=== PATIENT | female | born 1985 | race Caucasian/White ===

== ENCOUNTER → 2018-07-24 | Outpatient (CLI) | payer SELFPAY ==
--- NOTE | 2018-07-25 11:49 | RADIOLOGY IMAGING REPORT ---
FACILITY: [facility] - [place] PATIENT NAME: KEEGAN MCCALLUM : [id number] MR: [id number] V: [id number] EXAM DATE: [id number] ORDERING PHYSICIAN: MICK FLETCHER TECHNOLOGIST: Dorota Smith PROCEDURE:BILATERAL DIAGNOSTIC DIGITAL MAMMOGRAM WITH CAD ASSISTED INTERPRETATION & 3D TOMOSYNTHESIS REASON FOR STUDY: Left breast pain. FAMILY HISTORY OF BREAST CANCER: None. BREAST PROCEDURES/TREATMENTS: None. COMPARISON STUDIES: Today's Left breast Ultrasound. MAMMOGRAM VIEWS OBTAINED: Bilateral 2D & 3D full field CC & MLO. BREAST DENSITY: The breasts are heterogeneously dense which can obscure small masses. MAMMOGRAM FINDINGS: There is no demonstration of malignant appearing mass or calcification in either breast. ULTRASOUND AREA SCANNED: 4-8 o'clock position of the Left breast. ULTRASOUND FINDINGS: Mildly prominent ducts are seen in the anterior depth of the Left breast in the 4-8 o'clock position. DIAGNOSTIC CATEGORY 2--BENIGN FINDING. RECOMMENDATIONS: CLINICAL EVALUATION. IMPRESSION: BIRADS 2: Benign finding. There are mildly prominent ducts in the 4-8 o'clock position of the Left breast which may account for patient's Left breast pain. Clinical follow-up recommended, Dictated by: Priya Blackwell M.D. on 07/24/2018 at 16:59 Transcribed by: FIX on 07/25/2018 at 11:17 Approved by: Priya Blackwell M.D. on 07/25/2018 at 11:48 [facility]
--- NOTE | 2018-07-25 11:50 | RADIOLOGY IMAGING REPORT ---
FACILITY: [facility] PATIENT NAME: KEEGAN MCCALLUM : [id number] MR: [id number] V: [id number] EXAM DATE: [id number] ORDERING PHYSICIAN: MICK FLETCHER TECHNOLOGIST: Pierce Mcgrath RDMS, ASHVIN PROCEDURE:US LEFT BREAST COMPARISON:None. INDICATIONS:left breast pain AREA SCANNED: 4-8 o'clock position of the Left breast. ULTRASOUND FINDINGS: Mildly prominent ducts are seen in the anterior depth of the Left breast in the 4-8 o'clock position. DIAGNOSTIC CATEGORY 2--BENIGN FINDING. RECOMMENDATIONS: CLINICAL EVALUATION. IMPRESSION: BIRADS 2: Benign finding. There are mildly prominent ducts in the 4-8 o'clock position of the Left breast which may account for patient's Left breast pain. Clinical follow-up recommended, Dictated by: Priya Blackwell M.D. on 07/24/2018 at 16:59 Transcribed by: DIVINA on 07/25/2018 at 11:20 Approved by: Priya Blackwell M.D. on 07/25/2018 at 11:48 [facility]
== END ==
LOC: MAMO 01:02
PROVIDERS: ATTEND Nurse Practitioner Family
DX: N64.4 Mastodynia (principal)
CPT/HCPCS: 77062; 77066

== ENCOUNTER → 2018-07-24 | Outpatient (CLI) | payer OTHER | LOC: US 12:23 | PROVIDERS: ATTEND Nurse Practitioner Family | DX: Z02.9 Encounter for administrative examinations, unspecified (principal) ==